=== PATIENT | male | born 1995 | race Hispanic/Latino ===

== ENCOUNTER 2018-11-17 19:47 | Emergency (ER) | payer MEDICAID ==
[~2018-11-17] VITALS: Ht 175.3 cm; Wt 100.0 kg
[2018-11-17 20:46] LABS: HEMATOCRIT 48.9 % (39.0-50.0); IMMATURE GRANULOCYTES 0.4 % (0.0-5.0); MEAN CELL VOLUME 88.4 fL CALC (80.0-100.0); MEAN CORPUSCULAR HGB 30.7 pG CALC (26.0-32.0); MEAN CORPUSCULAR HGB CONC 34.8 g/L CALC (32.0-36.0); NEUT# 9.59 thou/uL (1.82-7.42); RED BLOOD COUNT 5.53 mill/uL (4.70-6.10); RED CELL DISTRI WIDTH 12.7 % (11.5-15.5)
[2018-11-17] MEDS ORDERED: AMOXICILLIN500 MG PO (21:20)
[2018-11-17] MEDS ORDERED: NO HOME MED (21:34)
[2018-11-17 21:35] VITALS: BP 131/82
== END 2018-11-17 21:35 | disposition home or self-care (01) ==
LOC: ED 19:47
PROVIDERS: Family Medicine
DX: J01.90 Acute sinusitis, unspecified (principal); E11.9 Type 2 diabetes mellitus without complications; R09.89 Other specified symptoms and signs involving the circulatory and respiratory systems; J02.9 Acute pharyngitis, unspecified

== ENCOUNTER 2019-10-20 18:38 | Emergency (ER) | payer SELFPAY ==
[~2019-10-20] VITALS: Ht 175.3 cm; Wt 90.9 kg
[~2019-10-20 18:38] MED LIST: AMOXICILLIN500 MG PO; NO HOME MED
[2019-10-20] MEDS ORDERED: BACTRIM DS1 TAB PO (19:53)
[2019-10-20 20:01] VITALS: BP 146/88
== END 2019-10-20 20:06 | disposition home or self-care (01) | DRG 718 ==
LOC: ED 18:38
PROC: 0V950ZZ Drainage of Scrotum, Open Approach (ICD-10-PCS; principal; 2019-10-20)
DX: N49.2 Inflammatory disorders of scrotum (principal); E11.9 Type 2 diabetes mellitus without complications

== ENCOUNTER 2020-01-07 17:51 | Inpatient (IN) | payer SELFPAY ==
[~2020-01-07] VITALS: Ht 175.3 cm; Wt 96.2 kg
[~2020-01-07 17:51] MED LIST changes: +BACTRIM DS1 TAB PO
[2020-01-07 18:12] LABS: HEMATOCRIT 51.7 % (39.0-50.0); HEMOGLOBIN 17.9 g/dl (14.0-18.0); IMMATURE GRANULOCYTES 0.7 % (0.0-5.0); MEAN CELL VOLUME 87.6 fL CALC (80.0-100.0); MEAN CORPUSCULAR HGB 30.3 pG CALC (26.0-32.0); MEAN CORPUSCULAR HGB CONC 34.6 g/L CALC (32.0-36.0); NEUT# 9.69 thou/uL (1.82-7.42); RED BLOOD COUNT 5.9 mill/uL (4.70-6.10); RED CELL DISTRI WIDTH 12.7 % (11.5-15.5)
[2020-01-07 18:58] LABS: ALBUMIN 4.6 g/dL (3.2-5.0); ALKALINE PHOSPHATASE 73 u/l (38-126); ANION GAP 25 (6-22 (CALC)); BILIRUBIN, TOTAL 1.7 mg/dL (0.0-1.4); BUN 10 mg/dL (9-20); BUN/CREATININE RATIO 16 (12-20 (CALC)); CARBON DIOXIDE 11 mmol/l (22-30); CHLORIDE 104 mmol/l (95-108); CREATININE 0.6 mg/dL (0.7-1.3); GFR > 60 ML/MIN (>=60 (CALC)); GFR FOR AFR.AMER. > 60 ML/MIN (>=60 (CALC)); LIPASE 224 u/l (23-300); POTASSIUM 3.8 mmol/l (3.5-5.1); SGOT/AST 72 u/l (17-59); SODIUM 137 mmol/l (137-146); TOTAL PROTEIN 7.7 g/dL (6.3-8.2)
[2020-01-07 20:18] LABS: URINE BILIRUBIN - DIPSTICK NEGATIVE (NEGATIVE); URINE BLOOD DIPSTICK TRACE-INTACT (NEGATIVE); URINE COLOR YELLOW; URINE GLUCOSE - DIPSTICK >=1000 mg/dL (NEGATIVE); URINE KETONE >=80 mg/dL (NEGATIVE); URINE LEUK ESTERASE NEGATIVE (NEGATIVE); URINE NITRITE - DIPSTICK NEGATIVE (Negative); URINE PH 5.5 (4.5-8.0); URINE PROTEIN - DIPSTICK 30 mg/dL (NEG-TRACE); URINE SPECIFIC GRAVITY 1.025; URINE UROBILINOGEN - DIPSTICK 0.2 E.U./dL (0.2)
[2020-01-07 20:23] LABS: BARBITURATES NEGATIVE (NEGATIVE); COCAINE NEGATIVE (NEGATIVE); METHADONE NEGATIVE (NEGATIVE); OXCYCODONE NEGATIVE (NEGATIVE); TETRAHYDROCANNABIONOL POSITIVE (NEGATIVE); TRICYLIC ANTIDEPRESSANTS NEGATIVE (NEGATIVE)
[2020-01-07 20:38] LABS: URINE SQUAMOUS EPITHELIAL CELL FEW EPI/hpf (0-FEW)
[2020-01-07 22:00] VITALS: BP 146/78
[2020-01-07 22:15] VITALS: BP 130/77
[2020-01-07 22:30] VITALS: BP 132/81
[2020-01-07 22:45] VITALS: BP 111/66
[2020-01-08] VITALS: BP 108/58
[2020-01-08 01:46] LABS: ALKALINE PHOSPHATASE 55 u/l (38-126); BILIRUBIN, TOTAL 1.4 mg/dL (0.0-1.4); BUN 10 mg/dL (9-20); BUN/CREATININE RATIO 16 (12-20 (CALC)); CHLORIDE 107 mmol/l (95-108); CREATININE 0.6 mg/dL (0.7-1.3); GFR > 60 ML/MIN (>=60 (CALC)); GFR FOR AFR.AMER. > 60 ML/MIN (>=60 (CALC)); POTASSIUM 3.8 mmol/l (3.5-5.1); SGOT/AST 47 u/l (17-59); SODIUM 138 mmol/l (137-146)
[2020-01-08 01:47] LABS: ALBUMIN 3.5 g/dL (3.2-5.0); ANION GAP 11 (6-22 (CALC)); CARBON DIOXIDE 24 mmol/l (22-30); TOTAL PROTEIN 6.1 g/dL (6.3-8.2)
[2020-01-08 02:00] VITALS: BP 107/66
[2020-01-08 04:00] VITALS: BP 114/66
[2020-01-08 05:11] LABS: IMMATURE GRANULOCYTES 0.5 % (0.0-5.0); MEAN CELL VOLUME 89.9 fL CALC (80.0-100.0); MEAN CORPUSCULAR HGB 30.5 pG CALC (26.0-32.0); MEAN CORPUSCULAR HGB CONC 33.9 g/L CALC (32.0-36.0); NEUT# 5.89 thou/uL (1.82-7.42); RED BLOOD COUNT 4.85 mill/uL (4.70-6.10); RED CELL DISTRI WIDTH 12.9 % (11.5-15.5)
[2020-01-08 05:15] LABS: HEMATOCRIT 43.6 % (39.0-50.0); HEMOGLOBIN 14.8 g/dl (14.0-18.0)
[2020-01-08 05:28] LABS: ANION GAP 9 (6-22 (CALC)); BUN 11 mg/dL (9-20); BUN/CREATININE RATIO 18 (12-20 (CALC)); CARBON DIOXIDE 22 mmol/l (22-30); CHLORIDE 108 mmol/l (95-108); CREATININE 0.6 mg/dL (0.7-1.3); GFR > 60 ML/MIN (>=60 (CALC)); GFR FOR AFR.AMER. > 60 ML/MIN (>=60 (CALC)); MAGNESIUM 1.9 mg/dL (1.6-2.3); POTASSIUM 3.8 mmol/l (3.5-5.1); SODIUM 136 mmol/l (137-146)
[2020-01-08 06:00] VITALS: BP 123/65
[2020-01-08 08:00] VITALS: BP 180/79
[2020-01-08] MEDS ORDERED: METFORMIN500 MG PO (09:59)
[2020-01-08] MEDS ORDERED: GLIPIZIDE5 MG PO (09:59)
[2020-01-08 10:00] VITALS: BP 145/64
== END 2020-01-08 10:43 | disposition home or self-care (01) | DRG 638 ==
LOC: ED 17:51 → ED-I 20:23 → ED 20:38 → ICU 20:39
PROVIDERS: Emergency Medicine; Family Medicine; ADMIT Internal Medicine; ATTEND Internal Medicine
DX: E11.65 Type 2 diabetes mellitus with hyperglycemia (principal); F10.180 Alcohol abuse with alcohol-induced anxiety disorder; E87.2 Acidosis; F10.129 Alcohol abuse with intoxication, unspecified; Y90.3 Blood alcohol level of 60-79 mg/100 ml; Z83.3 Family history of diabetes mellitus
CPT/HCPCS: J1650; J2060